=== PATIENT | female | born 1960 | race Caucasian/White ===

== ENCOUNTER 2017-07-28 19:19 | Observation (INO) ==
[2017-07-29] MEDS ORDERED: MORPHINE 2 MG/1 ML SYRINGE IV STA (00:50)
[2017-07-29] MEDS ORDERED: ONDANSETRON 4 MG/2 ML VIAL IV STA (00:50)
[2017-07-29 02:08] LABS: Basophils # 0.1 10*3/uL (0.0-0.2); Basophils % 1.1 % (0.0-0.8); Eosinophils # 0.5 10*3/uL (0.0-0.87); Eosinophils % 5.8 % (0.00-10.9); Hematocrit 42.1 VOL% (35.7-47.0); Immature Granulocytes % 0.2 %; Immature Granulocytes Absolute 0.02 #; Lymphocytes % 36.1 % (21.3-54.2); Mean Corpuscular HGB Conc 33.3 GM/DL (32-36); Mean Corpuscular Hemoglobin 31 PG (27-34); Mean Corpuscular Volume 92.3 FL (87-102); Mean Platelet Volume 9.3 FL (9.6-12.0); Monocytes # 0.8 10*3/uL (0.11-0.8); Monocytes % 9.3 % (1.7-12.7); Neutrophils % 47.5 % (38.7-73.9); Platelet Count 308 T/CUMM (130-400); Red Blood Count 4.56 MC/CUMM (3.8-5.5); White Blood Count 8.3 T/CUMM (4-12)
[2017-07-29 02:31] LABS: Albumin 3.8 G/DL (3.4-5.0); Bilirubin,Total 0.4 MG/DL (0.2-1.0); Calcium 8.6 MG/DL (8.5-10.1); Osmolality,Calculated 277.4 MOS/KG (273-304); Potassium 3.7 MMOL/L (3.5-5.1); Total Protein 7.8 G/DL (6.4-8.3)
[2017-07-29] MEDS ORDERED: ONDANSETRON 4 MG/2 ML VIAL ONE ×2 (02:42→11:30)
[2017-07-29] MEDS ORDERED: MORPHINE 4 MG/1 ML VIAL ONE ×2 (02:42→11:30)
[2017-07-29] MEDS ORDERED: KETOROLAC 30 MG/1 ML VIAL IV STA (03:36)
[2017-07-29] MEDS ORDERED: PANTOPRAZOLE 40 MG VIAL IV STA (03:36)
[2017-07-29] MEDS ORDERED: PANTOPRAZOLE 40 MG VIAL IV ONE (03:48)
[2017-07-29] MEDS ORDERED: KETOROLAC 30 MG/1 ML VIAL ONE (03:48)
[2017-07-29] MEDS ORDERED: POTASSIUM CHLORIDE 20 MEQ TABLET PO PRN (04:00)
[2017-07-29] MEDS ORDERED: NITROGLYCERIN SL 0.4 MG TABLET SL PRN (04:00)
[2017-07-29] MEDS ORDERED: MORPHINE 4 MG/1 ML VIAL IV PRN (04:00)
[2017-07-29] MEDS ORDERED: ONDANSETRON 4 MG/2 ML VIAL IV PRN (04:00)
[2017-07-29 04:45] LABS: Risk Ratio 2.74; VLDL CHOLESTEROL 18.8 MG/DL
[2017-07-29] MEDS ORDERED: ENOXAPARIN 40 MG/0.4 ML SYRINGE ONE (09:39)
[2017-07-29] MEDS ORDERED: ASPIRIN EC 325 MG TABLET PO ONE (09:39)
[2017-07-29] MEDS: ENOXAPARIN 40 MG/0.4 ML SYRINGE SUBCUT SCH (09:43)
[2017-07-29] MEDS: ASPIRIN EC 325 MG TABLET PO SCH (09:43)
[2017-07-29] MEDS ORDERED: busPIRone 10 MG TABLET PO PRN (11:33)
[2017-07-29] MEDS ORDERED: POTASSIUM CHLORIDE RIDER 10 MEQ in PREMIX 1 EACH IV PRN (12:03)
[2017-07-29] MEDS ORDERED: diphenhydrAMINE CAP 25 MG CAPSULE PO ONE (12:03)
[2017-07-29] MEDS ORDERED: MAGNESIUM SULF RIDER 2 GM in PREMIX 1 EACH IV PRN (12:03)
[2017-07-29] MEDS ORDERED: DIAZEPAM 5 MG TABLET PO ONE (12:03)
[2017-07-29] MEDS ORDERED: METOPROLOL TARTRATE 25 MG TABLET ONE (12:46)
[2017-07-29] MEDS ORDERED: DIAZEPAM 5 MG TABLET ONE (12:47)
[2017-07-29] MEDS ORDERED: diphenhydrAMINE CAP 25 MG CAPSULE ONE (12:47)
[2017-07-29] MEDS: METOPROLOL TARTRATE 25 MG TABLET PO SCH ×2 (12:53→20:38)
[2017-07-29] MEDS ORDERED: SODIUM CHLORIDE 0.9% 1,000 ML IV STA (12:56)
[2017-07-29] MEDS ORDERED: MIDAZOLAM 2 MG/2 ML VIAL ONE ×2 (13:09→13:30)
[2017-07-29] MEDS ORDERED: HEPARIN/NACL 0.9% 2 UNITS/ML 500 ML IV ONE (13:09)
[2017-07-29] MEDS ORDERED: fentaNYL 100 MCG/2 ML VIAL ONE (13:09)
[2017-07-29] MEDS ORDERED: ACETAMINOPHEN 325 MG TABLET PO PRN (14:06)
[2017-07-29] MEDS ORDERED: SODIUM CHLORIDE 0.45% 1,000 ML IV SCH (14:30)
[2017-07-29] MEDS: ACETAMINOPHEN/CODEINE 300-30 MG TABLET PO PRN ×2 (16:32→20:39)
[2017-07-30] MEDS: ACETAMINOPHEN/CODEINE 300-30 MG TABLET PO PRN ×2 (01:58→08:20)
[2017-07-30 06:54] LABS: Basophils # 0.1 10*3/uL (0.0-0.2); Basophils % 0.9 % (0.0-0.8); Eosinophils # 0.8 10*3/uL (0.0-0.87); Eosinophils % 11.9 % (0.00-10.9); Hematocrit 38.4 VOL% (35.7-47.0); Hemoglobin 12.7 GM/DL (12.0-16.0); Immature Granulocytes % 0.2 %; Immature Granulocytes Absolute 0.01 #; Lymphocytes # 2.4 10*3/uL (1.4-4.0); Lymphocytes % 36.1 % (21.3-54.2); Mean Corpuscular HGB Conc 33.1 GM/DL (32-36); Mean Corpuscular Hemoglobin 31 PG (27-34); Mean Corpuscular Volume 93.4 FL (87-102); Mean Platelet Volume 9.3 FL (9.6-12.0); Monocytes # 0.6 10*3/uL (0.11-0.8); Monocytes % 9.5 % (1.7-12.7); Neutrophils # 2.7 10*3/uL (1.4-7.4); Neutrophils % 41.4 % (38.7-73.9); Platelet Count 271 T/CUMM (130-400); Red Blood Count 4.11 MC/CUMM (3.8-5.5); White Blood Count 6.5 T/CUMM (4-12)
[2017-07-30 07:29] LABS: Eosinophils 11 % (0-10); Hypochromasia 1+; Lymphocytes 32 % (20-55); Microcytosis 1+; Platelet Estimate Normal; Segmented Neutrophils 49 % (50-85); Total Cells Counted 100
[2017-07-30 07:33] LABS: Calcium 8.2 MG/DL (8.5-10.1); Osmolality,Calculated 281.1 MOS/KG (273-304); Potassium 4.6 MMOL/L (3.5-5.1)
[2017-07-30] MEDS ORDERED: CLOPIDOGREL 75 MG TABLET PO SCH (09:00)
[2017-07-30] MEDS ORDERED: FLUoxetine 20 MG CAPSULE PO SCH (09:00)
[2017-07-30] MEDS ORDERED: LISINOPRIL 20 MG TABLET PO SCH (09:00)
[2017-07-30] MEDS ORDERED: ASPIRIN EC 81 MG TABLET PO SCH (09:00)
[2017-07-30] MEDS ORDERED: PANTOPRAZOLE 40 MG TABLET PO SCH (09:00)
[2017-07-30] MEDS: ENOXAPARIN 40 MG/0.4 ML SYRINGE SUBCUT SCH (09:28)
[2017-07-30] MEDS: ASPIRIN EC 325 MG TABLET PO SCH (09:29)
[2017-07-30] MEDS: METOPROLOL TARTRATE 25 MG TABLET PO SCH (09:30)
[2017-07-30 11:50] VITALS: BP 145/82
== END 2017-07-30 14:25 | disposition home or self-care (01) ==
LOC: N.EDINP 19:19 → N.ED 19:19 → N.2E 07-29 12:58
PROVIDERS: ADMIT Hospitalist; ATTEND Hospitalist
PROC: CLCCHCL (ICD-10-PCS; 2017-07-29 13:45)

== ENCOUNTER 2021-08-26 22:31 | Observation (INO) ==
[2021-08-26] MEDS ORDERED: ONDANSETRON 4 MG/2 ML VIAL IV STA (23:08)
[2021-08-26 23:50] LABS: Bacteria,Urine Few /HPF (Few); Mucus,Urine Occasional /LPF (Occasional); Squamous Epithelial Cell,Urine Occasional /HPF (0-10)
[2021-08-26 23:51] LABS: Bilirubin,Urine Negative (Negative); Blood, Urine Negative (Negative); Glucose,Urine (UA) Negative (Negative); Ketones,Urine Negative (Negative); Nitrite,Urine Positive (Negative); Protein,Urine Negative (Negative); Urine Appearance Slightly Cloudy (Clear); Urine Color Yellow (Yellow); Urine Specific Gravity 1.025 (1.001-1.035); Urine Urobilinogen 0.2 eU/dL (<2.0); Urine pH 6.5 (4.5-8.0)
[2021-08-26 23:59] LABS: Basophils # 0.1 10*3/uL (0.0-0.2); Basophils % 0.6 % (0.0-0.8); Eosinophils # 0.3 10*3/uL (0.0-0.87); Eosinophils % 3.4 % (0.00-10.9); Hematocrit 35.7 VOL% (35.7-47.0); Hemoglobin 11.6 GM/DL (12.0-16.0); Immature Granulocytes % 0.4 %; Immature Granulocytes Absolute 0.04 #; Lymphocytes # 2.5 10*3/uL (1.4-4.0); Lymphocytes % 24.9 % (21.3-54.2); Mean Corpuscular HGB Conc 32.5 GM/DL (32-36); Mean Corpuscular Volume 97.8 FL (87-102); Mean Platelet Volume 9.7 FL (9.6-12.0); Monocytes # 0.8 10*3/uL (0.11-0.8); Monocytes % 7.8 % (1.7-12.7); Neutrophils % 62.9 % (38.7-73.9); Platelet Count 322 T/CUMM (130-400); Red Blood Count 3.65 MC/CUMM (3.8-5.5); Red Cell Distribution Width 12.6 % (9.3-17.3)
[2021-08-27 00:07] LABS: Alanine Aminotransferase 20 U/L (13-56); Albumin 3.2 G/DL (3.4-5.0); Alkaline Phosphatase 88 U/L (45-117); Aspartate Amino Transferase 14 U/L (0-37); Bilirubin,Total < 0.39 MG/DL (0.20-1.00); Blood Urea Nitrogen 9 MG/DL (7-18); Calcium 8.5 MG/DL (8.5-10.1); Carbon Dioxide 28 MMOL/L (21-32); Chloride 111 MMOL/L (98-107); Estimated Glom Filtration Rate 98 ML/MIN; Glucose 106 MG/DL (74-106); Osmolality,Calculated 281.1 MOS/KG (273-304); Potassium 3.4 MMOL/L (3.5-5.1); Sodium 142 MMOL/L (136-145); Total Protein 6.8 G/DL (6.4-8.2)
[2021-08-27] MEDS ORDERED: ONDANSETRON 4 MG/2 ML VIAL IV STA (00:27)
[2021-08-27] MEDS ORDERED: MORPHINE 2 MG/1 ML SYRINGE IV STA (00:27)
[2021-08-27 00:37] LABS: Barbiturates Screen,Urine Negative (Negative); Benzodiazepines Screen,Urine Positive (Negative); Cannabinoid Screen,Urine Negative (Negative); Opiate Screen,Urine Positive (Negative); Phencyclidine Screen,Urine Negative (Negative)
[2021-08-27 01:21] LABS: PT Patient Result 10.9 SECS (10.5-12.0)
[2021-08-27] MEDS ORDERED: ZALEPLON 5 MG CAPSULE PO PRN (01:27)
[2021-08-27] MEDS ORDERED: NICOTINE 21 MG/24 HR PATCH TRANSDERM PRN (01:27)
[2021-08-27] MEDS ORDERED: DOCUSATE SODIUM 100 MG CAPSULE PO PRN (01:27)
[2021-08-27] MEDS ORDERED: ACETAMINOPHEN 325 MG TABLET PO PRN (01:27)
[2021-08-27] MEDS ORDERED: hydrALAZINE 20 MG/1 ML VIAL IV PRN (01:27)
[2021-08-27] MEDS ORDERED: diphenhydrAMINE CAP 25 MG CAPSULE PO PRN (01:27)
[2021-08-27] MEDS ORDERED: ONDANSETRON 4 MG/2 ML VIAL IV PRN (01:27)
[2021-08-27] MEDS ORDERED: GLUCAGON 1 MG VIAL IM PRN (01:27)
[2021-08-27] MEDS ORDERED: guaiFENesin/DM ER 600-30 MG TABLET PO PRN (01:27)
[2021-08-27] MEDS ORDERED: DEXTROSE 10% 250 ML BAG IV PRN (02:01)
[2021-08-27] MEDS: HEPARIN 5,000 UNIT/1 ML VIAL SUBCUT SCH ×2 (02:37→16:52)
[2021-08-27 04:42] LABS: Basophils # 0.1 10*3/uL (0.0-0.2); Basophils % 0.6 % (0.0-0.8); Eosinophils # 0.4 10*3/uL (0.0-0.87); Eosinophils % 4.7 % (0.00-10.9); Hematocrit 32.1 VOL% (35.7-47.0); Hemoglobin 10.4 GM/DL (12.0-16.0); Immature Granulocytes % 0.4 %; Immature Granulocytes Absolute 0.03 #; Lymphocytes # 2.8 10*3/uL (1.4-4.0); Lymphocytes % 34.6 % (21.3-54.2); Mean Corpuscular HGB Conc 32.4 GM/DL (32-36); Mean Corpuscular Volume 98.2 FL (87-102); Mean Platelet Volume 9.9 FL (9.6-12.0); Monocytes # 0.6 10*3/uL (0.11-0.8); Monocytes % 7.5 % (1.7-12.7); Neutrophils % 52.2 % (38.7-73.9); Platelet Count 280 T/CUMM (130-400); Red Blood Count 3.27 MC/CUMM (3.8-5.5); Red Cell Distribution Width 12.6 % (9.3-17.3); White Blood Count 8.1 T/CUMM (4-12)
[2021-08-27 04:56] LABS: Calcium 8.3 MG/DL (8.5-10.1); Osmolality,Calculated 284.1 MOS/KG (273-304); Potassium 3.3 MMOL/L (3.5-5.1)
[2021-08-27] MEDS ORDERED: clonazePAM 0.5 MG TABLET PO PRN (07:38)
[2021-08-27] MEDS ORDERED: POTASSIUM CHLORIDE 20 MEQ TABLET PO ONE (08:00)
[2021-08-27] MEDS ORDERED: ERGOCALCIFEROL 50,000 UNIT CAPSULE PO SCH (09:00)
[2021-08-27] MEDS ORDERED: LISINOPRIL/HCTZ 20-25 MG TABLET PO SCH (09:00)
[2021-08-27] MEDS: CLOPIDOGREL 75 MG TABLET PO SCH (09:36)
[2021-08-27] MEDS: FLUTICASONE 50 MCG NASAL SPRAY 16 GM BOTTLE BOTH NARES SCH ×2 (09:36→20:10)
[2021-08-27] MEDS: PANTOPRAZOLE 40 MG TABLET PO SCH (09:36)
[2021-08-27] MEDS: ASPIRIN EC 81 MG TABLET PO SCH (09:36)
[2021-08-27] MEDS: ATORVASTATIN 20 MG TABLET PO SCH (20:07)
[2021-08-27] MEDS: SERTRALINE 100 MG TABLET PO SCH (20:07)
[2021-08-28] MEDS: HEPARIN 5,000 UNIT/1 ML VIAL SUBCUT SCH ×2 (02:10→16:52)
[2021-08-28] MEDS ORDERED: SODIUM CHLORIDE 0.9% 1,000 ML IV SCH (08:30)
[2021-08-28 09:17] LABS: Calcium 8.4 MG/DL (8.5-10.1); Osmolality,Calculated 274.8 MOS/KG (273-304); Potassium 4.4 MMOL/L (3.5-5.1)
[2021-08-28] MEDS ORDERED: MECLIZINE 25 MG TABLET PO PRN (10:32)
[2021-08-28] MEDS: ASPIRIN EC 81 MG TABLET PO SCH (10:40)
[2021-08-28] MEDS: PANTOPRAZOLE 40 MG TABLET PO SCH (10:40)
[2021-08-28] MEDS: FLUTICASONE 50 MCG NASAL SPRAY 16 GM BOTTLE BOTH NARES SCH ×2 (10:40→20:14)
[2021-08-28] MEDS: CLOPIDOGREL 75 MG TABLET PO SCH (10:40)
[2021-08-28] MEDS: SERTRALINE 100 MG TABLET PO SCH (20:12)
[2021-08-28] MEDS: ATORVASTATIN 20 MG TABLET PO SCH (20:12)
[2021-08-29] MEDS: HEPARIN 5,000 UNIT/1 ML VIAL SUBCUT SCH ×2 (02:05→13:36)
[2021-08-29] MEDS: ASPIRIN EC 81 MG TABLET PO SCH (08:38)
[2021-08-29] MEDS: CLOPIDOGREL 75 MG TABLET PO SCH (08:38)
[2021-08-29] MEDS: PANTOPRAZOLE 40 MG TABLET PO SCH (08:38)
[2021-08-29] MEDS ORDERED: ERTAPENEM 1,000 MG in SODIUM CHLORIDE 0.9% 100 ML IV SCH (12:00)
[2021-08-29 12:02] VITALS: BP 140/78
[2021-08-29] MEDS: FLUTICASONE 50 MCG NASAL SPRAY 16 GM BOTTLE BOTH NARES SCH (13:54)
== END 2021-08-29 15:40 ==
LOC: EDUNIT# → EDBD → N.ED 22:31 → N.EDINP 22:31 → N.TELES 08-27 02:47
PROVIDERS: ADMIT Internal Medicine; ATTEND Internal Medicine